=== PATIENT | female | born 1995 | race Caucasian/White ===

== ENCOUNTER 2016-05-05 12:34 | Emergency (ER) | payer OTHER ==
--- NOTE | 2016-05-05 13:58 | EDDOCDS ---
Nurse's Notes [facility] Name: Marielos Lara Age: 21 yrs Sex: Female : 1995 Arrival Date: 05/05/2016 Time: 12:34 Bed TR8 Private MD: Homero Greer U Diagnosis: Acute frontal sinusitis;Headache Presentation: 05/05 12:50 Presenting complaint: Patient states: Headaches x 3 days. Takes Ibuprofen and Tylenol jo3 at home and Mcgregor resolves but comes back the next day. Didn't take anything for MCGREGOR today because she had classes. This patient has no additional risk factors. Adult Sepsis Screening: The patient does not have new or worsening altered mentation. Patient's respiratory rate is less than 22. Systolic blood pressure is greater than 100. Patient has a qSOFA score of 0- Negative Sepsis Screen. Suicide/Homicide risk assessment- the patient denies having any suicidal and/or homicidal ideations and does not present with any other emotional, behavioral or mental health complaints. 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 Transition of care: patient was not received from another setting of care. 12:50 Acuity: STIVEN Level 4 jo3 12:50 Method Of Arrival: Walkin/Carried/Asstd jo3 Triage Assessment: 12:52 Headache History: Other Persistent. General: Appears in no apparent distress, Behavior jo3 is appropriate for age, cooperative. Pain: Pain currently is 8 out of 10 on a pain scale. HIV screening NA for this visit Offered previously. Neurological: Level of Consciousness is awake, alert, Oriented to person, place, time. Respiratory: Airway is patent Respiratory effort is even, unlabored. 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 BCP Oral 1 tab once daily 2. lisinopril 10 mg Oral tab 1 tab once daily 3. metoprolol tartrate 50 mg Oral tab 1 tab once daily - PMHx: Hypertension; - PSHx: Adenoidectomy; tubes in ears x4; Tonsillectomy; ACL; - Social history: Smoking status: Patient states was never smoker of tobacco. No barriers to communication noted, The patient speaks fluent Swedish, Speaks appropriately for age. - Family history: Not pertinent. - : The pt / caregiver states he / she is not on anticoagulants. Home medication list is obtained from the patient. - Exposure Risk Screening:: None identified. Screenin:55 Screening information is obtained from the patient. Fall risk: No risks identified. jo3 Assistance ADL's: requires no assistance with activities of daily living. Abuse/DV Screen: The patient / caregiver reports he/she is: not in a situation that causes fear, pain or injury. Nutritional screening: No deficits noted. Advance Directives: There is no active DNR order. home support is adequate. Assessment: 13:55 General: Appears in no apparent distress, Behavior is appropriate for age, cooperative. jo3 Neurological: Level of Consciousness is awake, alert, Oriented to person, place, time, Moves all extremities. Full function Gait is steady, Speech is normal, Facial symmetry appears normal. Respiratory: No deficits noted. GI: No deficits noted. Vital Signs: 12:37 BP 147 / 71; Pulse 80; Resp 18 S; Temp 99.2(O); Pulse Ox 99% on R/A; Weight 108.86 kg gr2 (R); Height 5 ft. 10 in. (177.80 cm) (R); Pain 8/10; 12:37 Body Mass Index 34.44 (108.86 kg, 177.80 cm) gr2 Vitals: 12:37 Log In Time: May 05, 2016 at 12:37. gr2 ED Course: 12:36 Patient visited by Jyotsna Garza. gr2 12:36 Patient moved to Waiting gr2 12:37 Homero Greer is Private Physician. gr2 12:38 Patient visited by Jyotsna Garza. gr2 12:38 Patient moved to Pre RCE gr2 12:51 Triage Initiated jo3 12:53 Patient visited by Tanya Diaz RN. jo3 12:55 Patient moved to Triage 1 ttb 12:56 Patient moved to Pre RCE ttb 13:08 Patient moved to Triage 2 jb5 13:45 [facility] cc[facility] 13:45 Tavia Hussein MD is Attending Physician. cc10 13:45 Patient visited by Bob Carlson PA-C. cc10 13:45 Patient visited by Bob Carlson PA-C. cc10 13:51 Homero Greer is Referral Physician. cc10 13:55 Patient moved to TR8 jb5 13:55 The patient / caregiver is instructed regarding the plan of care and ED course. jo3 Accompanied by Significant Other, Patient has correct armband on for positive identification. Placed in gown. 13:55 No IV's were initiated during this patient's visit. No procedures done that require jo3 assistance. Order Results: There are currently no results for this order. Outcome: 13:51 Discharge ordered by Provider. cc10 13:55 Discharge Assessment: Patient awake, alert and oriented x 3. No cognitive and/or jo3 functional deficits noted. Patient verbalized understanding of disposition instructions. patient administered narcotics - no. The following High Risk Discharge criteria are identified: None. Discharged to home ambulatory, with significant other. Condition: good Condition: stable. Discharge instructions given to patient, Instructed on discharge instructions, follow up and referral plans. medication usage, Demonstrated understanding of instructions, medications, Pt was receptive of discharge instructions/ teaching. Prescriptions given X 3. No special radiology studies were completed. Property :Personal belongings accompany Pt. 13:57 Patient left the ED. jo3 Signatures: Delma De Oliveira, GLASS BEVELER GLASS BEVELER jb5 Tanya DiazRN RN jo3 Mery Andino, LORI RN Jyotsna Garcia 2 Bob Carlson PA-C PA-C cc10 MTDD
--- NOTE | 2016-05-05 13:58 | EDDOCDS ---
Physician Documentation [facility] Name: Marielos Lara Age: 21 yrs Sex: Female : 1995 Arrival Date: 05/05/2016 Time: 12:34 Bed TR8 Private MD: Homero Greer U Disposition: 05/05/16 13:51 Discharged to Home/Self Care. Impression: Acute frontal sinusitis, Headache. - Condition is Stable. - Discharge Instructions: Sinus Headache. - Prescriptions for Naprosyn 500 mg Oral Tablet - take 1 tablet by ORAL route 2 times per day take with food; 30 tablet. Prednisone 20 mg Oral Tablet - take 1 tablet by ORAL route once daily for 5 days; 5 tablet. Fluticasone 50 mcg/actuation Nasal [place], Suspension - inhale 1 spray by INTRANASAL route 2 times per day; 1 bottle. - Family Work Release, Medication Reconciliation, School Release Form - 1 day form. - Follow up: Homero Greer; When: Call to arrange an appointment; Reason: Wound/Symptom Recheck, Recheck today's complaints, Worsening of conditions, Continuance of care. - Problem is an ongoing problem. - Symptoms are unchanged. Historical: - Allergies: no known allergies; - Home Meds: 1. BCP Oral 1 tab once daily 2. lisinopril 10 mg Oral tab 1 tab once daily 3. metoprolol tartrate 50 mg Oral tab 1 tab once daily - PMHx: Hypertension; - PSHx: Adenoidectomy; tubes in ears x4; Tonsillectomy; ACL; - Social history: Smoking status: Patient states was never smoker of tobacco. No barriers to communication noted, The patient speaks fluent Belarusian, Speaks appropriately for age. - Family history: Not pertinent. - : The pt / caregiver states he / she is not on anticoagulants. Home medication list is obtained from the patient. - Exposure Risk Screening:: None identified. 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 10 in. (177.80 cm) (R); Pain 8/10; 12:37 Body Mass Index 34.44 (108.86 kg, 177.80 cm) gr2 Signatures: Tanya Diaz,RN RN jo3 Bob Carlson PA-C PA-C cc10 MTDD
--- NOTE | 2016-05-07 14:58 | EDDOCDS ---
Physician Documentation [facility] Name: Marielos Lara Age: 21 yrs Sex: Female : 1995 Arrival Date: 05/05/2016 Time: 12:34 Bed TR8 Private MD: Homero Greer U Disposition: 05/05/16 13:51 Discharged to Home/Self Care. Impression: Acute frontal sinusitis, Headache. - Condition is Stable. - Discharge Instructions: Sinus Headache. - Prescriptions for Naprosyn 500 mg Oral Tablet - take 1 tablet by ORAL route 2 times per day take with food; 30 tablet. Prednisone 20 mg Oral Tablet - take 1 tablet by ORAL route once daily for 5 days; 5 tablet. Fluticasone 50 mcg/actuation Nasal [place], Suspension - inhale 1 spray by INTRANASAL route 2 times per day; 1 bottle. - Family Work Release, Medication Reconciliation, School Release Form - 1 day form. - Follow up: Homero Greer; When: Call to arrange an appointment; Reason: Wound/Symptom Recheck, Recheck today's complaints, Worsening of conditions, Continuance of care. - Problem is an ongoing problem. - Symptoms are unchanged. Historical: - Allergies: no known allergies; - Home Meds: 1. BCP Oral 1 tab once daily 2. lisinopril 10 mg Oral tab 1 tab once daily 3. metoprolol tartrate 50 mg Oral tab 1 tab once daily - PMHx: Hypertension; - PSHx: Adenoidectomy; tubes in ears x4; Tonsillectomy; ACL; - Social history: Smoking status: Patient states was never smoker of tobacco. No barriers to communication noted, The patient speaks fluent Malay, Speaks appropriately for age. - Family history: Not pertinent. - : The pt / caregiver states he / she is not on anticoagulants. Home medication list is obtained from the patient. - Exposure Risk Screening:: None identified. 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 10 in. (177.80 cm) (R); Pain 8/10; 12:37 Body Mass Index 34.44 (108.86 kg, 177.80 cm) gr2 MDM: 14:35 [facility] [place] Payment Agreement was scanned into [employer] and attached to record. lg 05/06 08:14 T-Sheet-- Draft Copy was scanned into [employer] and attached to record. [facility] Signatures: Kal Adkins, Reg Reg lg Tanya Diaz RN RN jo3 Bob Carlson, HEDYC PAMarimar cc10 Tavia Gomes [facility] The chart was reviewed and I authenticate all verbal orders and agree with the evaluation and treatment provided.Attachments: 05/05 14:35 [facility] Payment Agreement lg 05/06 08:14 T-Sheet-- Draft Copy [facility] Chart Complete MTDD
--- NOTE | 2016-05-07 14:58 | EDDOCDS ---
Nurse's Notes [facility] Name: Marielos Lara Age: 21 yrs Sex: Female : 1995 Arrival Date: 05/05/2016 Time: 12:34 Bed TR8 Private MD: Homero Greer U Diagnosis: Acute frontal sinusitis;Headache Presentation: 05/05 12:50 Presenting complaint: Patient states: Headaches x 3 days. Takes Ibuprofen and Tylenol jo3 at home and Mcgregor resolves but comes back the next day. Didn't take anything for MCGREGOR today because she had classes. This patient has no additional risk factors. Adult Sepsis Screening: The patient does not have new or worsening altered mentation. Patient's respiratory rate is less than 22. Systolic blood pressure is greater than 100. Patient has a qSOFA score of 0- Negative Sepsis Screen. Suicide/Homicide risk assessment- the patient denies having any suicidal and/or homicidal ideations and does not present with any other emotional, behavioral or mental health complaints. 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 Transition of care: patient was not received from another setting of care. 12:50 Acuity: STIVEN Level 4 jo3 12:50 Method Of Arrival: Walkin/Carried/Asstd jo3 Triage Assessment: 12:52 Headache History: Other Persistent. General: Appears in no apparent distress, Behavior jo3 is appropriate for age, cooperative. Pain: Pain currently is 8 out of 10 on a pain scale. HIV screening NA for this visit Offered previously. Neurological: Level of Consciousness is awake, alert, Oriented to person, place, time. Respiratory: Airway is patent Respiratory effort is even, unlabored. 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 BCP Oral 1 tab once daily 2. lisinopril 10 mg Oral tab 1 tab once daily 3. metoprolol tartrate 50 mg Oral tab 1 tab once daily - PMHx: Hypertension; - PSHx: Adenoidectomy; tubes in ears x4; Tonsillectomy; ACL; - Social history: Smoking status: Patient states was never smoker of tobacco. No barriers to communication noted, The patient speaks fluent Bulgarian, Speaks appropriately for age. - Family history: Not pertinent. - : The pt / caregiver states he / she is not on anticoagulants. Home medication list is obtained from the patient. - Exposure Risk Screening:: None identified. Screenin:55 Screening information is obtained from the patient. Fall risk: No risks identified. jo3 Assistance ADL's: requires no assistance with activities of daily living. Abuse/DV Screen: The patient / caregiver reports he/she is: not in a situation that causes fear, pain or injury. Nutritional screening: No deficits noted. Advance Directives: There is no active DNR order. home support is adequate. Assessment: 13:55 General: Appears in no apparent distress, Behavior is appropriate for age, cooperative. jo3 Neurological: Level of Consciousness is awake, alert, Oriented to person, place, time, Moves all extremities. Full function Gait is steady, Speech is normal, Facial symmetry appears normal. Respiratory: No deficits noted. GI: No deficits noted. Vital Signs: 12:37 BP 147 / 71; Pulse 80; Resp 18 S; Temp 99.2(O); Pulse Ox 99% on R/A; Weight 108.86 kg gr2 (R); Height 5 ft. 10 in. (177.80 cm) (R); Pain 8/10; 12:37 Body Mass Index 34.44 (108.86 kg, 177.80 cm) gr2 Vitals: 12:37 Log In Time: May 05, 2016 at 12:37. gr2 ED Course: 12:36 Patient visited by Jyotsna Garza. gr2 12:36 Patient moved to Waiting gr2 12:37 Homero Greer is Private Physician. gr2 12:38 Patient visited by Jyotsna Garza. gr2 12:38 Patient moved to Pre RCE gr2 12:51 Triage Initiated jo3 12:53 Patient visited by Tanya Diaz RN. jo3 12:55 Patient moved to Triage 1 ttb 12:56 Patient moved to Pre RCE ttb 13:08 Patient moved to Triage 2 jb5 13:45 [facility] cc[facility] 13:45 Tavia Hussein MD is Attending Physician. cc10 13:45 Patient visited by Bob Carlson PA-C. cc10 13:45 Patient visited by Bob Calrson PA-C. cc10 13:51 Homero Greer is Referral Physician. cc10 13:55 Patient moved to TR8 jb5 13:55 The patient / caregiver is instructed regarding the plan of care and ED course. jo3 Accompanied by Significant Other, Patient has correct armband on for positive identification. Placed in gown. 13:55 No IV's were initiated during this patient's visit. No procedures done that require jo3 assistance. 14:31 Patient name changed from Marielos\S\Angelica\S\Lara\S\ to Marielos\S\E\S\Lara. EDMS 14:35 [facility] Payment Agreement was scanned into [employer] and attached to record. 05/06 08:14 T-Sheet-- Draft Copy was scanned into [employer] and attached to record. [facility] Order Results: There are currently no results for this order. Outcome: 05/05 13:51 Discharge ordered by Provider. cc10 13:55 Discharge Assessment: Patient awake, alert and oriented x 3. No cognitive and/or jo3 functional deficits noted. Patient verbalized understanding of disposition instructions. patient administered narcotics - no. The following High Risk Discharge criteria are identified: None. Discharged to home ambulatory, with significant other. Condition: good Condition: stable. Discharge instructions given to patient, Instructed on discharge instructions, follow up and referral plans. medication usage, Demonstrated understanding of instructions, medications, Pt was receptive of discharge instructions/ teaching. Prescriptions given X 3. No special radiology studies were completed. Property :Personal belongings accompany Pt. 13:57 Patient left the ED. jo3 Signatures: Dispatcher [employer] [facility] Kal Adkins, James Reg lg Delma De Oliveira, AUTO INSPECTOR AUTO INSPECTOR jb5 Tanya Diaz,RN RN jo3 Mery Andino, LORI RN Jyotsna Garcia 2 Bob Carlson PA-C PAMarimar ccTavia Sanders Chart Complete MTDD
--- NOTE | 2016-05-07 14:58 | EDDOCDS ---
Physician Documentation [facility] Name: Marielos Lara Age: 21 yrs Sex: Female : 1995 Arrival Date: 05/05/2016 Time: 12:34 Bed TR8 Private MD: Homero Greer U Disposition: 05/05/16 13:51 Discharged to Home/Self Care. Impression: Acute frontal sinusitis, Headache. - Condition is Stable. - Discharge Instructions: Sinus Headache. - Prescriptions for Naprosyn 500 mg Oral Tablet - take 1 tablet by ORAL route 2 times per day take with food; 30 tablet. Prednisone 20 mg Oral Tablet - take 1 tablet by ORAL route once daily for 5 days; 5 tablet. Fluticasone 50 mcg/actuation Nasal [place], Suspension - inhale 1 spray by INTRANASAL route 2 times per day; 1 bottle. - Family Work Release, Medication Reconciliation, School Release Form - 1 day form. - Follow up: Homero Greer; When: Call to arrange an appointment; Reason: Wound/Symptom Recheck, Recheck today's complaints, Worsening of conditions, Continuance of care. - Problem is an ongoing problem. - Symptoms are unchanged. Historical: - Allergies: no known allergies; - Home Meds: 1. BCP Oral 1 tab once daily 2. lisinopril 10 mg Oral tab 1 tab once daily 3. metoprolol tartrate 50 mg Oral tab 1 tab once daily - PMHx: Hypertension; - PSHx: Adenoidectomy; tubes in ears x4; Tonsillectomy; ACL; - Social history: Smoking status: Patient states was never smoker of tobacco. No barriers to communication noted, The patient speaks fluent Telugu, Speaks appropriately for age. - Family history: Not pertinent. - : The pt / caregiver states he / she is not on anticoagulants. Home medication list is obtained from the patient. - Exposure Risk Screening:: None identified. 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 10 in. (177.80 cm) (R); Pain 8/10; 12:37 Body Mass Index 34.44 (108.86 kg, 177.80 cm) gr2 MDM: 14:35 [facility] [place] Payment Agreement was scanned into [employer] and attached to record. lg 05/06 08:14 T-Sheet-- Draft Copy was scanned into [employer] and attached to record. [facility] Signatures: Kal Adkins, Reg Reg lg Tanya Diaz RN RN jo3 Bob Carlson, HEDYC PAMarimar cc10 Tavia Gomes [facility] The chart was reviewed and I authenticate all verbal orders and agree with the evaluation and treatment provided.Attachments: 05/05 14:35 [facility] Payment Agreement lg 05/06 08:14 T-Sheet-- Draft Copy [facility] Chart Complete MTDD
== END 2016-05-05 13:57 | disposition home or self-care (01) ==
LOC: M ED 12:34
DX: R51 Headache (principal); J01.10 Acute frontal sinusitis, unspecified; I10 Essential (primary) hypertension; Z96.22 Myringotomy tube(s) status; Z79.3 Long term (current) use of hormonal contraceptives; Z79.899 Other long term (current) drug therapy

== ENCOUNTER 2016-06-30 23:46 | Emergency (ER) | payer OTHER ==
[~2016-06-30] VITALS: Ht 175.3 cm; Wt 108.9 kg
[2016-07-01] MEDS ORDERED: LISI10TA4 PO (00:02)
[2016-07-01] MEDS ORDERED: MICR1TAB10 PO (00:02)
[2016-07-01] MEDS ORDERED: METO-207 PO (00:02)
[2016-07-01] MEDS ORDERED: ONDANSETRON 4MG/2ML VIAL (J2405) IV ONE (01:30)
[2016-07-01] MEDS ORDERED: NS 1,000 ML IV ONE (01:30)
[2016-07-01] MEDS ORDERED: MORPHINE 4 MG/ML 1ML SYRINGE IV PRN (01:30)
[2016-07-01 02:26] LABS: BASO % 0.2 % (0.0-1.0); EOS # 0.3 K/mm3 (0.0-0.50); EOS % 2.6 % (0.0-3.0); LARGE UNSTAINED CELL # 0.1 K/mm3 (0.0-0.4); LARGE UNSTAINED CELL % 0.8 % (0.0-4.0); LYMPH # 1.9 K/mm3 (1.5-6.5); LYMPH % 16.3 % (24.0-44.0); MEAN CORPUSCULAR HEMOGLOBIN 30.7 pg (27.0-33.0); MEAN CORPUSCULAR HGB CONC 33.8 g/dl (32.0-36.5); MEAN CORPUSCULAR VOLUME 90.7 fl (80.0-96.0); MONO # 0.3 K/mm3 (0.0-0.8); MONO % 3.1 % (0.0-5.0); NEUTROPHILS # 8.3 K/mm3 (1.8-7.7); PLATELET COUNT, AUTOMATED 347 k/mm3 (150-450); RED CELL DISTRIBUTION WIDTH 12.2 % (11.5-14.5); WHITE BLOOD COUNT 10.8 K/mm3 (4.0-10.0)
[2016-07-01 02:51] LABS: ALBUMIN 4.2 GM/DL (3.2-5.2); ALBUMIN/GLOBULIN RATIO 0.93 (1.00-1.93); ALKALINE PHOSPHATASE 45 U/L (45-117); ALT/SGPT 177 U/L (12-78); ANION GAP 11 MEQ/L (8-16); AST/SGOT 90 U/L (15-37); BILIRUBIN,DIRECT 0.1 MG/DL (0.0-0.2); BILIRUBIN,TOTAL 0.7 MG/DL (0.2-1.0); BLOOD UREA NITROGEN 12 MG/DL (7-18); CALCIUM LEVEL 9.7 MG/DL (8.5-10.1); CARBON DIOXIDE LEVEL 24 MEQ/L (21-32); CHLORIDE LEVEL 102 MEQ/L (98-107); CREATININE FOR GFR 0.84 MG/DL (0.55-1.02); GLUCOSE, FASTING 94 MG/DL (70-105); POTASSIUM SERUM 3.9 MEQ/L (3.5-5.1); SODIUM LEVEL 137 MEQ/L (136-145); TOTAL PROTEIN 8.7 GM/DL (6.4-8.2)
[2016-07-01] MEDS ORDERED: ZOFR4TAB3 PO (03:48)
[2016-07-01 04:09] VITALS: BP 124/76
[2016-07-01 05:47] LABS: CONTROL LINE HCG INT CTR LINE PRESENT
== END 2016-07-01 04:10 | disposition home or self-care (01) ==
LOC: M ED 07-01 03:05
DX: R10.9 Unspecified abdominal pain (principal); R19.7 Diarrhea, unspecified; R11.2 Nausea with vomiting, unspecified; I10 Essential (primary) hypertension; Z79.899 Other long term (current) drug therapy; J30.81 Allergic rhinitis due to animal (cat) (dog) hair and dander
CPT/HCPCS: 80048; 80076; 83690; 84703; 85025; 93041; 96361; 96374; 96375; 99284; J2405

== ENCOUNTER 2016-10-25 21:57 | Emergency (ER) | payer OTHER ==
[~2016-10-25] VITALS: Ht 175.3 cm; Wt 104.5 kg
[~2016-10-25 21:57] MED LIST: LISI10TA4 PO; METO1TAB7 PO; MICR1TAB10 PO; ZOFR4TAB3 PO
[2016-10-26] MEDS ORDERED: FLON1SPR (00:26)
[2016-10-26] MEDS ORDERED: ZYRT10TA2 PO (00:26)
[2016-10-26] MEDS ORDERED: diphenhydrAMINE 50 MG CAP PO ONE (00:30)
[2016-10-26 00:32] VITALS: BP 162/92
== END 2016-10-26 00:34 | disposition home or self-care (01) ==
LOC: M ED 21:57
DX: J30.9 Allergic rhinitis, unspecified (principal); R51 Headache; I10 Essential (primary) hypertension; Z79.899 Other long term (current) drug therapy

== ENCOUNTER 2018-06-19 15:17 | Emergency (ER) | payer OTHER ==
[~2018-06-19] VITALS: Ht 177.8 cm; Wt 132.6 kg
[~2018-06-19 15:17] MED LIST changes: +FLON1SPR; -MICR1TAB10 PO; +MICR1TAB18 PO; +ZOFR4TAB14 PO; -ZOFR4TAB3 PO; +ZYRT10CA5 PO
[2018-06-19] MEDS ORDERED: IBUP-1022 PO (17:42)
[2018-06-19] MEDS ORDERED: AUGM875T28 PO (17:42)
[2018-06-19] MEDS ORDERED: FLON1SPR NARES (17:42)
[2018-06-19 17:48] VITALS: BP 141/78
== END 2018-06-19 17:52 | disposition home or self-care (01) ==
LOC: M ED 15:17
DX: H65.01 Acute serous otitis media, right ear (principal); Z79.899 Other long term (current) drug therapy

== ENCOUNTER → 2020-04-16 | Outpatient (REF) | payer OTHER ==
[~2020-04-16] MED LIST changes: +AUGM875T28 PO; +FLON1SPR NARES; +IBUP-1022 PO
[2020-04-16 14:22] LABS: ALBUMIN 4.6 GM/DL (3.2-5.2); ALT/SGPT 68 U/L (12-78); BILIRUBIN,TOTAL 0.5 MG/DL (0.2-1.0); BLOOD UREA NITROGEN 14 MG/DL (7-18); CALCIUM LEVEL 9.5 MG/DL (8.5-10.1); CARBON DIOXIDE LEVEL 28 MEQ/L (21-32); CHLORIDE LEVEL 105 MEQ/L (98-107); CHOLESTEROL LEVEL 238 MG/DL (<200); CHOLESTEROL RISK RATIO 4.958 (<5); CREATININE FOR GFR 0.96 MG/DL (0.55-1.30); GLOMERULAR FILTRATION RATE > 60.0 (>60); GLUCOSE, FASTING 95 MG/DL (70-100); HDL CHOLESTEROL 48 MG/DL (>40); LDL CHOLESTEROL 166 MG/DL (<100); NON-HDL-C 190 MG/DL; POTASSIUM SERUM 4.6 MEQ/L (3.5-5.1); SODIUM LEVEL 137 MEQ/L (136-145); TOTAL PROTEIN 8.2 GM/DL (6.4-8.2); TRIGLYCERIDES LEVEL 118 MG/DL (<150)
[2020-04-16 15:36] LABS: HEMOGLOBIN A1c 5.3 %
== END ==
LOC: M PLALAB 09:19
PROVIDERS: ATTEND Advanced Practice Midwife
DX: E66.01 Morbid (severe) obesity due to excess calories (principal); I10 Essential (primary) hypertension

== ENCOUNTER → 2020-05-20 | Outpatient (REF) | payer OTHER ==
[~2020-05-20] MED LIST changes: +LISI10TA22 PO; -LISI10TA4 PO
[2020-05-20 14:34] LABS: FOLLICLE STIMULATING HORMONE 5.7 mIU/mL; LUTEINIZING HORMONE 12.8 mIU/mL; PROLACTIN 19.9 NG/ML
== END ==
LOC: M PLALAB 10:25
PROVIDERS: ATTEND Advanced Practice Midwife
DX: N91.2 Amenorrhea, unspecified (principal)

== ENCOUNTER → 2020-05-20 | Outpatient (REF) | payer OTHER | LOC: M SFHCWAGY 13:44 | PROVIDERS: ATTEND Advanced Practice Midwife | DX: Z12.4 Encounter for screening for malignant neoplasm of cervix (principal) ==

== ENCOUNTER → 2020-06-03 | Outpatient (CLI) | payer OTHER ==
--- NOTE | 2020-06-03 11:18 | REP ---
INDICATION: MASS ON RIBS UNDER LEFT BREAST/AMENORRHEA; N91.2 AMENORRHEA. COMPARISON: None. TECHNIQUE: Transabdominal and transvaginal scanning performed. FINDINGS: Uterine dimensions are 7.1 x 3.4 x 4.4 cm. Endometrial echo is 3 mm in AP dimension and centrally placed. The bladder measures 5.8 x 4.5 x 6.8 cm. The right ovary has dimensions of 5.3 x 3.1 x 3.2 cm. The left ovary dimensions are 4.7 x 3.1 x 2.8 cm. Blood flow is seen in each ovary with Doppler evaluation. Multiple subcentimeter follicles are seen throughout both ovaries. There is somewhat increased stromal echogenicity in both ovaries. There is no adnexal mass identified. No free fluid is seen in the cul-de-sac. IMPRESSION: Bilateral ovarian enlargement with multiple subcentimeter follicles seen throughout both ovaries, in addition to increased stromal echogenicity. Findings are compatible with polycystic ovaries. <Electronically signed by Matias Borrego > 06/03/20 [id number]
--- NOTE | 2020-06-03 11:19 | REP ---
INDICATION: MASS ON RIBS UNDER LEFT BREAST/AMENORRHEA. COMPARISON: None. TECHNIQUE: Real-time sonographic evaluation of left chest wall performed inferior to the left breast at the site of a palpable abnormality. FINDINGS: There is no discrete cystic or solid mass in this region. IMPRESSION: No discrete cystic or solid mass at the site of the reported palpable lump in the chest wall inferior to the left breast. <Electronically signed by Matias Borrego > 06/03/20 [id number]
== END ==
LOC: M WHC 08:48
PROVIDERS: ATTEND Advanced Practice Midwife
DX: N83.02 Follicular cyst of left ovary (principal); N83.01 Follicular cyst of right ovary; N91.2 Amenorrhea, unspecified; R22.2 Localized swelling, mass and lump, trunk

== ENCOUNTER → 2022-07-27 | Outpatient (CLI) | payer BC ==
[~2022-07-27] MED LIST changes: -MICR1TAB18 PO; +NORE1TAB94 PO
[2022-07-27 16:16] LABS: HEMATOCRIT 37.8 % (36.0-47.0); HEMOGLOBIN 12.5 g/dl (12.0-15.5); MEAN CORPUSCULAR HEMOGLOBIN 31.1 pg (27.0-33.0); MEAN CORPUSCULAR HGB CONC 33.1 g/dl (32.0-36.5); PLATELET COUNT, AUTOMATED 332 10^3/uL (150-450); RED BLOOD COUNT 4.02 10^6/uL (4.00-5.40); WHITE BLOOD COUNT 12.7 10^3/uL (4.0-10.0)
[2022-07-27 16:33] LABS: TOTAL PROTEIN,RANDOM URINE 6.8 MG/DL (0.0-14.0)
[2022-07-27 16:38] LABS: CREATININE,RANDOM URINE 70.2 MG/DL
[2022-07-27 16:40] LABS: URIC ACID 3.7 MG/DL (3.1-7.8)
[2022-07-27 16:41] LABS: LDH LACTATE DEHYDROGENASE 144 U/L (120-246)
[2022-07-27 16:42] LABS: ALT/SGPT 17 U/L (7.0-40); AST/SGOT < 8 U/L (<34); BILIRUBIN,TOTAL 0.3 MG/DL (0.3-1.2); CREATININE FOR GFR 0.65 MG/DL (0.55-1.30); GLOMERULAR FILTRATION RATE > 60.0 (>60); GLUCOSE CHALLENGE TEST 1 HOUR 87 MG/DL (LESS THAN 140)
[2022-07-27 17:08] LABS: HIV 1&2 SCREEN ATELLICA NEGATIVE (NEGATIVE)
[2022-07-27 17:56] LABS: GC DNA AMPLIFICATION NEGATIVE (NEGATIVE)
[2022-07-27 19:21] LABS: HEMOGLOBIN A1c 4.8 % (4.0-6.0)
== END ==
LOC: M PLALAB 11:11
PROVIDERS: ATTEND Advanced Practice Midwife
DX: O10.011 Pre-existing essential hypertension complicating pregnancy, first trimester (principal)

== ENCOUNTER → 2022-09-21 | Outpatient (CLI) | payer BC | LOC: M WHC 11:58 | PROVIDERS: ATTEND Obstetrics & Gynecology | DX: O43.192 Other malformation of placenta, second trimester (principal); Z3A.20 20 weeks gestation of pregnancy ==

== ENCOUNTER → 2022-10-06 | Outpatient (CLI) | payer BC | LOC: M RAD 12:51 | PROVIDERS: ATTEND Specialist | DX: Z34.02 Encounter for supervision of normal first pregnancy, second trimester (principal); Z3A.22 22 weeks gestation of pregnancy ==

== ENCOUNTER → 2022-12-21 | Outpatient (CLI) | payer BC | LOC: M WHC 11:43 | PROVIDERS: ATTEND Advanced Practice Midwife | DX: O16.3 Unspecified maternal hypertension, third trimester (principal) ==

== ENCOUNTER 2023-01-23 05:05 | Inpatient (IN) | payer BC ==
[~2023-01-23] VITALS: Ht 175.3 cm; Wt 128.7 kg
[2023-01-23] VITALS (15 sets, daily range): BP systolic 126–157; BP diastolic 59–93; TEMP 98.2; O2SAT 94–100
[~2023-01-23 05:05] MED LIST changes: +ECOT81TA5 PO; +LABE200T5 PO; +METF-839 PO; +MULTTAB20 PO; +OMEP40CA4 PO
[2023-01-23] MEDS ORDERED: HOME MED LIST COMPLETE! XX SCH (05:25)
[2023-01-23 06:18] LABS: HEMATOCRIT 35.8 % (36.0-47.0); HEMOGLOBIN 12.1 g/dl (12.0-15.5); MEAN CORPUSCULAR HEMOGLOBIN 30.5 pg (27.0-33.0); MEAN CORPUSCULAR HGB CONC 33.8 g/dl (32.0-36.5); MEAN CORPUSCULAR VOLUME 90.2 fl (80.0-96.0); PLATELET COUNT, AUTOMATED 304 10^3/uL (150-450); RED BLOOD COUNT 3.97 10^6/uL (4.00-5.40); WHITE BLOOD COUNT 14.6 10^3/uL (4.0-10.0)
[2023-01-23] MEDS ORDERED: LACTATED RINGER'S 1000 ML IV STA (07:19)
[2023-01-23] MEDS ORDERED: BICITRA 30ML SOLN UDC PO ONE (07:20)
[2023-01-23] MEDS ORDERED: ceFAZolin SOD 2 GM in IV 1 EA IV ONE ×2 (07:20→07:35)
[2023-01-23] MEDS ORDERED: ceFAZolin SOD 3 GM in IV 1 EA IV ONE (07:35)
[2023-01-23] MEDS ORDERED: ceFAZolin SOD 1 GM in D5W MINI-BAG PLUS 50 ML IV ONE (07:35)
[2023-01-23] MEDS: LR 1,000 ML IV SCH ×2 (07:43→15:20)
[2023-01-23] MEDS ORDERED: MORPHINE PRES-FREE INJ 10 MG/10 ML VIAL As Ordered ONE (08:26)
[2023-01-23] MEDS ORDERED: ONDANSETRON 4MG 2ML VIAL As Ordered ONE (08:26)
[2023-01-23] MEDS ORDERED: ACETAMINOPHEN 1000MG 100ML IV BAG As Ordered ONE (08:26)
[2023-01-23] MEDS ORDERED: METOCLOPRAMIDE INJ 10MG/2ML VIAL As Ordered ONE (08:26)
[2023-01-23] MEDS ORDERED: KETOROLAC 60MG 2ML VIAL As Ordered ONE (08:26)
[2023-01-23] MEDS ORDERED: OXYTOCIN 30UNITS IN 0.9% NaCl 500ML IV BAG As Ordered ONE ×2 (08:26→09:09)
[2023-01-23] MEDS ORDERED: PHENYLephrine 500MCG 5ML (100MCG/ML) SYRINGE As Ordered ONE (08:27)
[2023-01-23] MEDS ORDERED: ePHEDrine SULFATE 25 MG/5 ML(5MG/ML) SYRINGE As Ordered ONE (08:34)
[2023-01-23] MEDS: PRENATAL VITAMINS CHEWABLE TABLET PO SCH (09:00)
[2023-01-23] MEDS: DOCUSATE SODIUM 100MG CAPSULE PO SCH ×2 (09:00→21:03)
[2023-01-23] MEDS ORDERED: ACETAMINOPHEN 500 MG TAB PO PRN (09:05)
[2023-01-23] MEDS ORDERED: ONDANSETRON 4MG 2ML VIAL IV PRN ×2 (09:05→09:50)
[2023-01-23] MEDS ORDERED: OXYTOCIN DRIP 30 UNITS in IV 1 EA IV SCH (09:05)
[2023-01-23] MEDS ORDERED: ANUSOL HC CREAM 30GM TOP PRN (09:05)
[2023-01-23] MEDS ORDERED: RHOGAM 300MCG (1500IU) INJ IM SCH (09:05)
[2023-01-23] MEDS ORDERED: PERCOCET 5MG/325MG TAB PO PRN (09:05)
[2023-01-23] MEDS ORDERED: MORPHINE 4 MG/ML 1ML VIAL IV PRN (09:05)
[2023-01-23] MEDS ORDERED: SIMETHICONE 80MG CHEW TAB PO PRN (09:05)
[2023-01-23] MEDS ORDERED: IBUP80TA PO (09:16)
[2023-01-23] MEDS ORDERED: COLA100C5 PO (09:16)
[2023-01-23] MEDS ORDERED: PERCOCET PO (09:16)
[2023-01-23] MEDS ORDERED: NALOXONE INJ 0.4MG/1ML VIAL IV PRN ×2 (09:50)
[2023-01-23] MEDS ORDERED: diphenhydrAMINE 50MG/ML VIAL IV PRN (09:50)
[2023-01-23] MEDS ORDERED: **NOTE PATIENT COMMENT** MISC XX SCH (09:50)
[2023-01-23] MEDS ORDERED: fentaNYL 100 MCG/2 ML INJECTION IV PRN (09:50)
[2023-01-23] MEDS ORDERED: MORPHINE 2 MG/ML 1ML VIAL IV PRN (09:50)
[2023-01-23] MEDS ORDERED: oxyCODONE 5MG TAB PO PRN (09:50)
[2023-01-23] MEDS: SLF 3 ML SYR IV SCH ×2 (09:50→17:50)
[2023-01-23] MEDS ORDERED: METOCLOPRAMIDE INJ 10MG/2ML VIAL IV PRN (09:50)
[2023-01-23] MEDS ORDERED: MORPHINE 10 MG/ML 1ML VIAL As Ordered ONE (10:00)
[2023-01-23] MEDS ORDERED: LR 1,000 ML IV ONE (14:50)
[2023-01-23] MEDS: KETOROLAC 30 MG/ML 1ML VIAL IV SCH ×2 (15:29→21:03)
[2023-01-23] MEDS: ENOXAPARIN 40MG/0.4ML SYRINGE (J1650 PER 10MG) SC SCH (17:48)
[2023-01-23] MEDS: LABETALOL 200 MG TAB PO SCH (21:04)
[2023-01-24] MEDS: LR 1,000 ML IV SCH ×3 (00:46→15:20)
[2023-01-24] MEDS: SLF 3 ML SYR IV SCH (01:50)
[2023-01-24 02:00] VITALS: BP 134/71; O2SAT 96
[2023-01-24] MEDS: KETOROLAC 30 MG/ML 1ML VIAL IV SCH (03:28)
[2023-01-24 06:00] VITALS: BP 132/61; O2SAT 98
[2023-01-24 07:20] LABS: HEMATOCRIT 23.7 % (36.0-47.0); MEAN CORPUSCULAR HGB CONC 33.8 g/dl (32.0-36.5); MEAN CORPUSCULAR VOLUME 91.9 fl (80.0-96.0); PLATELET COUNT, AUTOMATED 222 10^3/uL (150-450); RED BLOOD COUNT 2.58 10^6/uL (4.00-5.40); WHITE BLOOD COUNT 12.4 10^3/uL (4.0-10.0)
[2023-01-24] MEDS: PRENATAL VITAMINS CHEWABLE TABLET PO SCH (09:25)
[2023-01-24] MEDS: PERCOCET 5MG/325MG TAB PO PRN ×2 (09:26→17:02)
[2023-01-24] MEDS: DOCUSATE SODIUM 100MG CAPSULE PO SCH ×2 (09:26→20:01)
[2023-01-24] MEDS: LABETALOL 200 MG TAB PO SCH ×2 (09:29→20:01)
[2023-01-24 10:00] VITALS: BP 125/66; O2SAT 97
[2023-01-24] MEDS: IBUPROFEN 800 MG TAB PO SCH ×2 (12:09→18:52)
[2023-01-24] MEDS: ENOXAPARIN 40MG/0.4ML SYRINGE (J1650 PER 10MG) SC SCH (17:03)
[2023-01-24 18:00] VITALS: BP 137/79; O2SAT 97
[2023-01-24 22:00] VITALS: BP 130/70; O2SAT 98
[2023-01-25 02:00] VITALS: BP 144/72; O2SAT 97
[2023-01-25] MEDS: IBUPROFEN 800 MG TAB PO SCH ×2 (03:15→12:04)
[2023-01-25 06:00] VITALS: BP 127/69; O2SAT 98
[2023-01-25] MEDS: PRENATAL VITAMINS CHEWABLE TABLET PO SCH (08:53)
[2023-01-25] MEDS: DOCUSATE SODIUM 100MG CAPSULE PO SCH (08:53)
[2023-01-25 08:54] VITALS: BP 124/66
[2023-01-25] MEDS: LABETALOL 200 MG TAB PO SCH (08:54)
[2023-01-25] MEDS ORDERED: MEASLES,MUMPS,RUBELLA VACCINE INJ (MMR-II) SC.IMMUN ONE (09:00)
== END 2023-01-25 12:15 | disposition home or self-care (01) | DRG 540 ==
LOC: M LDI 05:05 → EEVIPCON 05:05 → M OBS 10:40
PROVIDERS: ADMIT Obstetrics & Gynecology; ATTEND Obstetrics & Gynecology
PROC: 10D00Z1 Extraction of Products of Conception, Low, Open Approach (ICD-10-PCS; principal; 2023-01-23 07:30)
DX: O32.1XX0 Maternal care for breech presentation, not applicable or unspecified (principal); Z37.0 Single live birth; Z3A.39 39 weeks gestation of pregnancy; O10.919 Unspecified pre-existing hypertension complicating pregnancy, unspecified trimester; Z79.82 Long term (current) use of aspirin; Z79.899 Other long term (current) drug therapy

== ENCOUNTER → 2024-01-22 | Outpatient (REF) | payer OTHER ==
[~2024-01-22] MED LIST changes: +COLA100C5 PO; +IBUP80TA PO; +PERCOCET PO
== END ==
LOC: M SFHCWAGY 13:14
PROVIDERS: ATTEND Obstetrics & Gynecology
DX: Z12.4 Encounter for screening for malignant neoplasm of cervix (principal)

== ENCOUNTER → 2024-11-03 | Outpatient (CLI) | payer OTHER ==
[~2024-11-03] MED LIST changes: +NORE-23 PO; -NORE1TAB94 PO
[2024-11-03 13:42] LABS: PLATELET COUNT, AUTOMATED 325 10^3/uL (150-450)
[2024-11-03 14:06] LABS: ALT/SGPT 24 U/L (7.0-40); AST/SGOT 18 U/L (<34); CALCIUM LEVEL 9.0 MG/DL (8.5-10.1); CARBON DIOXIDE LEVEL 23 MMOL/L (20-31); CHLORIDE LEVEL 105 MMOL/L (98-107); CREATININE FOR GFR 0.63 MG/DL (0.55-1.30); GLOMERULAR FILTRATION RATE > 90.0 (>60); POTASSIUM SERUM 4.4 MMOL/L (3.5-5.1); SODIUM LEVEL 140 MMOL/L (136-145)
[2024-11-03 14:13] LABS: TOTAL PROTEIN,RANDOM URINE < 6.0 MG/DL (0.0-14.0)
[2024-11-03 14:32] LABS: HIV 1&2 SCREEN NEGATIVE (NEGATIVE)
[2024-11-03 14:39] LABS: HEPATITIS C VIRUS ABY INDEX < 0.02 INDEX (<0.8)
[2024-11-03 14:46] LABS: Trichomonas vaginalis (AMP) NOT DETECTED (NEGATIVE)
[2024-11-03 15:09] LABS: GC DNA AMPLIFICATION NEGATIVE (NEGATIVE)
== END ==
LOC: M PLALAB 11:33
PROVIDERS: ATTEND Obstetrics & Gynecology
DX: Z34.92 Encounter for supervision of normal pregnancy, unspecified, second trimester (principal); Z3A.00 Weeks of gestation of pregnancy not specified

== ENCOUNTER → 2024-12-31 | Outpatient (CLI) | payer OTHER ==
[~2024-12-31] MED LIST changes: -IBUP-1022 PO; +IBUP600T42 PO
== END ==
LOC: M RAD 14:02
PROVIDERS: ATTEND Obstetrics & Gynecology
DX: Z34.80 Encounter for supervision of other normal pregnancy, unspecified trimester (principal); Z3A.00 Weeks of gestation of pregnancy not specified

== ENCOUNTER → 2025-01-27 | Outpatient (CLI) | payer OTHER | LOC: M RAD 14:41 | PROVIDERS: ATTEND Obstetrics & Gynecology | DX: Z34.82 Encounter for supervision of other normal pregnancy, second trimester (principal); Z3A.26 26 weeks gestation of pregnancy ==

== ENCOUNTER → 2025-02-02 | Outpatient (CLI) | payer OTHER ==
[2025-02-02 15:46] LABS: PLATELET COUNT, AUTOMATED 308 10^3/uL (150-450)
[2025-02-02 16:08] LABS: GLUCOSE CHALLENGE TEST 1 HOUR 111 MG/DL (LESS THAN 140)
[2025-02-02 16:44] LABS: HIV 1&2 SCREEN NEGATIVE (NEGATIVE)
[2025-02-02 16:49] LABS: Trichomonas vaginalis (AMP) NOT DETECTED (NEGATIVE)
[2025-02-02 16:51] LABS: HEPATITIS C VIRUS ABY INDEX < 0.02 INDEX (<0.8)
[2025-02-02 17:12] LABS: GC DNA AMPLIFICATION NEGATIVE (NEGATIVE)
== END ==
LOC: M PLALAB 12:35
PROVIDERS: ATTEND Specialist
DX: Z34.82 Encounter for supervision of other normal pregnancy, second trimester (principal)

== ENCOUNTER → 2025-03-19 | Outpatient (CLI) | payer OTHER ==
[~2025-03-19] MED LIST changes: -LABE200T5 PO; +LABE200T86 PO
== END ==
LOC: M WHC 13:57
PROVIDERS: ATTEND Student in an Organized Health Care Education/Training Program
DX: Z34.83 Encounter for supervision of other normal pregnancy, third trimester (principal); Z3A.34 34 weeks gestation of pregnancy

== ENCOUNTER 2025-03-31 09:54 | Outpatient (CLI) | payer OTHER ==
[~2025-03-31] VITALS: Ht 175.3 cm; Wt 139.3 kg
[2025-03-31] MEDS ORDERED: LABE100T40 PO (10:13)
[2025-03-31 10:15] VITALS: BP 129/74
[2025-03-31 10:54] LABS: PLATELET COUNT, AUTOMATED 306 10^3/uL (150-450)
[2025-03-31 11:19] LABS: INR 0.98
== END 2025-03-31 14:15 | disposition home or self-care (01) ==
LOC: M LDO 09:54
PROVIDERS: ATTEND Advanced Practice Midwife
DX: O26.893 Other specified pregnancy related conditions, third trimester (principal); W00.0XXA Fall on same level due to ice and snow, initial encounter; O10.913 Unspecified pre-existing hypertension complicating pregnancy, third trimester; O09.813 Supervision of pregnancy resulting from assisted reproductive technology, third trimester; O34.218 Maternal care for other type scar from previous cesarean delivery; O99.213 Obesity complicating pregnancy, third trimester; E66.01 Morbid (severe) obesity due to excess calories; Z3A.33 33 weeks gestation of pregnancy; Y92.9 Unspecified place or not applicable; Y99.9 Unspecified external cause status; Y93.9 Activity, unspecified
CPT/HCPCS: 36415; 59025; 85027; 85384; 85460; 85610; 85730; G0463